=== PATIENT | male | born 1985 | race Caucasian/White ===

== ENCOUNTER 2020-11-24 23:32 | Emergency (ER) | payer MEDICAID ==
[~2020-11-24] VITALS: Ht 185.4 cm; Wt 79.8 kg
[~2020-11-24 23:32] MED LIST: CLONIDINE HCL0.1 MG PO
[2020-11-24] MEDS ORDERED: HYDROXYZINE HCL25 MG PO (23:48)
--- NOTE | 2020-11-25 14:43 | EKG ---
[facility] [address] [facility] [place] [address] Signed Normal sinus rhythm Normal ECG No previous ECGs available Confirmed by POLO HERNANDEZ DO ([id number]) on 11/25/2020 2:43:22 PM Electronically Signed By: POLO HERNANDEZ DO 11/25/20 1443 PATIENT NAME: AUGUSTIN LIM Electrocardiogram DATE OF : 83 PHYSICIAN: POLO HERNANDEZ DO REPORT #: [id number] REPORT IS CONFIDENTIAL AND NOT TO BE RELEASED WITHOUT AUTHORIZATION
== END 2020-11-25 00:44 | disposition home or self-care (01) ==
LOC: ED 23:32
DX: R00.2 Palpitations (principal); F90.9 Attention-deficit hyperactivity disorder, unspecified type; F17.200 Nicotine dependence, unspecified, uncomplicated; Z79.899 Other long term (current) drug therapy
CPT/HCPCS: 80053; 83735; 84443; 84484; 85025; 93005; 93010; 99285-25

== ENCOUNTER 2024-01-06 18:51 | Emergency (ER) | payer OTHER ==
[~2024-01-06] VITALS: Ht 185.4 cm; Wt 80.0 kg
[~2024-01-06 18:51] MED LIST changes: +HYDROXYZINE HCL25 MG PO
[2024-01-06] MEDS ORDERED: QUETIAPINE FUMARATE 25 MG TAB PO ONE (21:30)
[2024-01-06 22:55] VITALS: BP 148/78
== END 2024-01-06 22:57 | disposition home or self-care (01) ==
LOC: ED 18:51
DX: F15.951 Other stimulant use, unspecified with stimulant-induced psychotic disorder with hallucinations (principal); F24 Shared psychotic disorder; F17.200 Nicotine dependence, unspecified, uncomplicated
CPT/HCPCS: 99284; A9270

== ENCOUNTER 2024-03-22 00:47 | Emergency (ER) | payer OTHER ==
[~2024-03-22] VITALS: Ht 185.4 cm; Wt 88.9 kg
[2024-03-22 01:58] LABS: BASOPHILS 0.4 % (0-2); EOSINOPHILS 1.5 % (0-6); HEMATOCRIT 44.4 % (35.0-50.0); HEMOGLOBIN 15.7 g/dL (12.0-18.0); LYMPHOCYTES 18.4 % (24-44); MCH 31.3 (27-36); MCHC 35.5 g/dl (30-36); MCV 88.3 fl (81-99); MONOCYTES 11.8 % (0-12); NEUTROPHILS 67.9 % (39-80); PLATELET COUNT 234 K/uL (140-440); RBC 5.03 M/ul (4.3-5.7); RDW 13.2 (10.5-15.0)
[2024-03-22 02:15] LABS: ALBUMIN 4.2 g/dL (3.4-5.0); ALBUMIN/GLOBULIN RATIO 1.31 (1.1-2.4); ANION GAP 13.3 (7-21); BUN/CREATININE RATIO 13.72 (6.0-28.6); CALCIUM 9.5 mg/dL (8.5-10.1); CREATININE, SERUM 1.02 mg/dL (0.70-1.30); MAGNESIUM 2.2 mg/dL (1.8-2.4); POTASSIUM 3.3 mmol/L (3.5-5.1); PROTEIN, TOTAL 7.4 g/dL (6.4-8.2)
[2024-03-22 02:34] LABS: CORONAVIRUS COVID-19 AG NEGATIVE (NEGATIVE); INFLUENZA A AG NEGATIVE (NEGATIVE); INFLUENZA B AG NEGATIVE (NEGATIVE)
[2024-03-22 02:47] LABS: AMPHETAMINES, URINE POSITIVE (NEGATIVE); BARBITURATES, URINE NEGATIVE (NEGATIVE); BENZODIAZEPINE, URINE NEGATIVE (NEGATIVE); BUPRENORPHINE, URINE NEGATIVE (NEGATIVE); CANNABINOID, URINE POSITIVE (NEGATIVE); COCAINE, URINE NEGATIVE (NEGATIVE); ECSTASY, URINE POSITIVE (NEGATIVE); FENTANYL, URINE NEGATIVE (NEGATIVE); METHADONE, URINE NEGATIVE (NEGATIVE); OPIATES, URINE NEGATIVE (NEGATIVE); OXYCODONE, URINE NEGATIVE (NEGATIVE); PHENCYCLIDINE, URINE NEGATIVE (NEGATIVE)
[2024-03-22 03:39] VITALS: BP 137/86
== END 2024-03-22 03:40 | disposition home or self-care (01) ==
LOC: ED 00:47
PROVIDERS: Family Medicine
DX: T43.651A Poisoning by methamphetamines accidental (unintentional), initial encounter (principal); R11.0 Nausea; F90.9 Attention-deficit hyperactivity disorder, unspecified type; F17.200 Nicotine dependence, unspecified, uncomplicated; Z79.899 Other long term (current) drug therapy
CPT/HCPCS: 36415; 80053; 80307; 83735; 85025; 99283